=== PATIENT | female | born 1995 | race Caucasian/White ===

== ENCOUNTER 2021-04-26 12:43 | Emergency (ER) | payer BC, SELFPAY ==
[2021-04-26] VITALS (10 sets, daily range): BP systolic 98–119; BP diastolic 57–75; PULSE 57–73; RESP 13–22; TEMP 36.9; O2SAT 96–100; BMI 27.4
--- NOTE | 2021-04-26 12:54 | ED.ABDPAIN ---
HPI - Abdominal Pain General Chief Complaint: Abdominal Pain Stated Complaint: Thinks Appendicitis Time Seen by Provider: 04/26/21 12:49 Source: patient Mode of arrival: Ambulatory Limitations: no limitations History of Present Illness HPI narrative: 25-year-old female nonsmoker with noncontributory medical history presents with a chief complaint of right lower quadrant pain since this morning. She states her pain is worse with motion and improves at rest. She denies fever chills. She denies nausea, vomiting, diarrhea or constipation. She denies any dysuria, frequency or urgency. She denies any vaginal bleeding or discharge. She states her pain is worse when she moves and improves with rest. She denies any change in appetite. She states her last period was about 6 weeks ago and she is occasionally sexually active. She denies vaginal bleeding or discharge Related Data Previous Rx's Medication Instructions Recorded norethindrone acetate 1 mg-ethinyl 1 tab PO QDAY #21 tab 10/20/18 estradiol 20 mcg tablet (Junel) Allergies Allergy/AdvReac Type Severity Reaction Status Date / Time No Known Drug Allergies Allergy Verified 04/26/21 12:52 Review of Systems Review of Systems Narrative: GENERAL: Denies chills, fatigue, malaise, fever, sweats. HEENT: Denies sinus pain, ear pain, sore throat, difficulty swallowing, dizziness. RESPIRATORY: Denies dyspnea, cough, wheezing, hemoptysis, sputum. CARDIOVASCULAR: Denies chest pain, palpitations, orthopnea, edema, GASTROINTESTINAL: See HPI : Denies dysuria, frequency, incontinence, hematuria, urinary retention. MUSCULOSKELETAL: denies weakness, joint pain, or bony pain SKIN: Denies rash, skin lesions, or other NEUROLOGIC: Denies weakness, headache, numbness, change in speech, confusion, seizures, incoordination. PSYCHIATRIC: No concerning psychosocial issues. 12 point review of systems is negative except for those stated above Patient History Social History Smoking Status: Unknown if ever smoked Smoking Status: Unknown if ever smoked alcohol intake frequency: a few times a week Substance Use Type: does not use Exam Narrative Exam Narrative: GENERAL: 25 [] year old patient appears stated age. Well-developed patient, in mild distress. HEAD: Atraumatic. Normocephalic. EYES: Pupils equal round and reactive. Extraocular motions intact. No scleral icterus. No injection or drainage. ENT: Nose without bleeding, purulent drainage. Throat without erythema, tonsillar hypertrophy or exudate. Airway patent. NECK: Trachea midline. Non tender CARDIOVASCULAR: Regular rate and rhythm without murmurs, gallops, or rubs. RESPIRATORY: Clear to auscultation. Breath sounds equal bilaterally. No wheezes, rales, or rhonchi. GASTROINTESTINAL: Abdomen soft, tender in the right lower quadrant, nondistended. No rebound, guarding, obturator or psoas EXTREMITIES: No edema or joint tenderness. BACK: Nontender without deformity or crepitance. No flank tenderness. NEURO: AOx3. SKIN: No rash or erythema of visible areas Initial Vital Signs Initial Vital Signs: Vital Signs Temperature 98.4 F 04/26/21 12:48 Pulse Rate 65 04/26/21 12:48 Respiratory Rate 14 04/26/21 12:48 Blood Pressure 119/75 04/26/21 12:48 Pulse Oximetry 100 04/26/21 12:48 Course Orders Ordered: Discontinued Medications Sodium Chloride (Normal Saline 0.9%) 1,000 mls @ 1,000 mls/hr IV BOLUS ONE Stop: 04/26/21 13:51 Last Infusion: 04/26/21 15:05 Dose: 0 mls/hr Documented by: Admin: 04/26/21 13:12 Dose: 1,000 mls/hr Documented by: CHARBEL Vital Signs Vital signs: Vital Signs - 8 hr 04/26/21 12:48 04/26/21 12:50 04/26/21 13:14 Temperature 98.4 F Pulse Rate 65 59 L Respiratory Rate 14 22 Blood Pressure 119/75 119/75 Pulse Oximetry 100 98 04/26/21 13:30 04/26/21 13:55 04/26/21 14:00 Temperature Pulse Rate 57 L 60 57 L Respiratory Rate 17 13 19 Blood Pressure 108/69 108/65 Pulse Oximetry 100 96 100 04/26/21 14:15 04/26/21 14:30 Temperature Pulse Rate 73 58 L Respiratory Rate 20 18 Blood Pressure 114/69 103/57 L Pulse Oximetry 100 100 MDM - Abdominal Pain Lab Data Result diagrams: 04/26/21 13:00 04/26/21 13:00 Labs: Lab Results 04/26/21 04/26/21 04/26/21 Range/Units 13:00 13:00 13:00 WBC 7.5 (4.5-11.0) X10^3/uL RBC 4.18 (4.0-5.2) X10^6/uL Hgb 12.4 (12.0-16.0) g/dL Hct 37.3 (36-46) % MCV 89.3 (80-100) fL MCH 29.6 (26-34) PG MCHC 33.1 (30-36) % RDW 13.3 (11.6-14.8) % Plt Count 200 (150-400) X10^3/uL Neut % (Auto) 63.0 (50-75) % Lymph % (Auto) 28.2 (25-40) % [place] % (Auto) 6.9 (3-14) % Eos % (Auto) 1.4 L (2-4) % Baso % (Auto) 0.5 (0-2) % Neut # (Auto) 4800 (6855-8507) /uL Lymph # (Auto) 2100 (4266-3394) /uL [place] # (Auto) 500 (0-900) /uL Eos # (Auto) 100 (0-450) /uL Baso # (Auto) 0 (0-100) /uL Sodium 139 (137-145) mmol/L Potassium 3.8 (3.4-5.1) mmol/L Chloride 105 (98-107) mmol/L Carbon Dioxide 27 (22-32) mmol/L BUN 13 (7-17) mg/dL Creatinine 0.68 (0.52-1.04) mg/dL Estimated GFR > 60.0 (>60) mL/min BUN/Creatinine Ratio 19.1 (6-22) Glucose 100 (70-100) mg/dL Calcium 9.6 (8.4-10.2) mg/dL Total Bilirubin 0.4 (0.2-1.3) mg/dL AST 27 (14-36) IU/L ALT 20 (<35) IU/L Alkaline Phosphatase 47 (38-126) U/L Total Protein 7.0 (6.3-8.2) g/dL Albumin 4.2 (3.5-5.0) g/dL Globulin 2.8 (1.7-4.1) g/dL Albumin/Globulin Ratio 1.5 (1.0-2.8) Lipase 159 (23-300) U/L Serum , Qual Negative (Negative) Urine RBC (0-5/HPF) Urine WBC (0-5/HPF) Ur Squamous Epith Cells (0-5/HPF) Urine Bacteria (None) Ur Culture Indicated? SARS-CoV-2 (PCR) (Negative) 04/26/21 04/26/21 Range/Units 13:00 13:55 WBC (4.5-11.0) X10^3/uL RBC (4.0-5.2) X10^6/uL Hgb (12.0-16.0) g/dL Hct (36-46) % MCV (80-100) fL MCH (26-34) PG MCHC (30-36) % RDW (11.6-14.8) % Plt Count (150-400) X10^3/uL Neut % (Auto) (50-75) % Lymph % (Auto) (25-40) % [place] % (Auto) (3-14) % Eos % (Auto) (2-4) % Baso % (Auto) (0-2) % Neut # (Auto) (0485-4491) /uL Lymph # (Auto) (7279-3448) /uL [place] # (Auto) (0-900) /uL Eos # (Auto) (0-450) /uL Baso # (Auto) (0-100) /uL Sodium (137-145) mmol/L Potassium (3.4-5.1) mmol/L Chloride (98-107) mmol/L Carbon Dioxide (22-32) mmol/L BUN (7-17) mg/dL Creatinine (0.52-1.04) mg/dL Estimated GFR (>60) mL/min BUN/Creatinine Ratio (6-22) Glucose (70-100) mg/dL Calcium (8.4-10.2) mg/dL Total Bilirubin (0.2-1.3) mg/dL AST (14-36) IU/L ALT (<35) IU/L Alkaline Phosphatase (38-126) U/L Total Protein (6.3-8.2) g/dL Albumin (3.5-5.0) g/dL Globulin (1.7-4.1) g/dL Albumin/Globulin Ratio (1.0-2.8) Lipase (23-300) U/L Serum , Qual (Negative) Urine RBC None seen (0-5/HPF) Urine WBC None seen (0-5/HPF) Ur Squamous Epith Cells >30 /hpf H (0-5/HPF) Urine Bacteria None seen (None) Ur Culture Indicated? Cult not indicated SARS-CoV-2 (PCR) Negative (Negative) Point of care testing: Urine Dip Bedside Urine Glucose Negative Bedside Urine Bilirubin - Negative Bedside Urine Ketone - Negative Urine Specific [place] 1.030 Bedside Urine Occult Blood - Negative Bedside Urine pH 6 Bedside Urine Protein + 30 Bedside Urine Urobilinogen - Negative Bedside Urine Nitrite - Negative Bedside Urine Leukocytes - Negative Esterase Imaging Data CT scan - abdomen/pelvis: Radiologist's Impression: Ariela Gay E 25 F [address] [id number] Scan ReportSigned Patient: Ariela Gay EMR#: [id number]: 1995Acct:[id number]/Sex: 25 / FDate of Service: 04/26/21Loc: EDAccession Number: [id number] Procedure: CT abdomen pelvis w con Ordering Provider: Todd Hensley D.O. PROCEDURE: CT ABDOMEN PELVIS W CON INDICATIONS: abdominal pain TECHNIQUE: After the administration of oral and IV contrast, axial sections were acquired from the lung bases to the pubic symphysis. Coronal and sagittal reformats were performed. For radiation dose reduction, the following was used: automated exposure control, adjustment of mA and/or kV according to patient size. COMPARISON: None. FINDINGS: Lower thorax: The lung bases are clear. Heart size normal. No hiatal hernia. Liver: Normal in size and attenuation. No contour deformity present. Biliary system: No calcified cholelithiasis or pericholecystic inflammation. No intra or extrahepatic bile duct dilatation. Pancreas: Unremarkable without mass or inflammation evident. Spleen: Normal in size and density. Small 1 cm benign appearing cyst noted. Adrenals: Normal morphology and density. Reproductive system: Unremarkable as visualized. Urinary system: Normal renal size and attenuation. No renal calculi, hydronephrosis, or solid mass present. Urinary bladder unremarkable. Gastrointestinal system: The bowel appears unremarkable with no evidence of bowel obstruction or inflammation. The stomach appears unremarkable. Appendix: The appendix is largely gas filled and 5 mm in diameter. No evidence of acute appendicitis. Peritoneal spaces: No mesenteric or retroperitoneal adenopathy. No free air. Small amount of free fluid noted in the pelvis. Vasculature: The IVC, aorta and iliac vasculature are unremarkable. Musculoskeletal: Normal bone mineralization. No acute fractures. Abdominal wall intact without evidence of ventral or inguinal hernias. IMPRESSION: 1. Small amount of free fluid in the pelvis. Consider ultrasound correlation. 2. Normal appearing appendix. US - PUTTY REMOVER: Radiologist's Impression: Ariela Gay E 25 F [address] [id number] ReportSigned Patient: Ariela Gay EMR#: [id number]: 1995Acct:[id number]/Sex: 25 / FDate of Service: 04/26/21Loc: EDAccession Number: [id number] Procedure: US pelvic complete Ordering Provider: Todd Hensley D.O. PROCEDURE: US PELVIC COMPLETE INDICATIONS: RIGHT LOWER QUADRANT PAIN. NEGATIVE TEST. TECHNIQUE: Real-time scanning was performed of the pelvic organs, with image documentation. Additional endovaginal scanning was necessary due to incomplete visualization of the adnexal and endometrial structures by transabdominal scanning. COMPARISON: [facility], CT, CT ABDOMEN PELVIS W CON, 04/26/2021, 14:08. FINDINGS: Uterus: Uterus is normal in size at 8.0 x 4.5 x 3.0 cm. The endometrium measures 11.1 mm in combined thickness. Subcentimeter fibroids are noted. Ovaries: The right ovary measures 4.7 x 2.4 x 2.9 cm. The left ovary measures 2.6 x 2.0 x 1.6 cm. Both ovaries demonstrate multiple normal appearing follicles. The left ovary has a para ovarian simple follicle measuring 1.4 x 1.1 x 0.8 cm. Other: There is a small amount of simple fluid in the right adnexa, likely physiologic. IMPRESSION: 1. No acute ultrasound abnormality of the pelvis. 2. Fluid in the pelvis is likely physiologic. Dictated by: Al Ulloa M.D. on 04/26/2021 at 16:12 Approved by: Al Ulloa M.D. on 04/26/2021 at 16:19 MDM Narrative Medical decision making narrative: Multiple diagnoses considered including kidney stone versus appendicitis versus bowel obstruction versus ovarian torsion versus ectopic. Patient's labs and imaging are very reassuring. I discussed at length with the patient my strong recommendation to perform a pelvic exam and the potential consequences of an untreated pelvic infection such as tubo-ovarian abscess, problems with conceiving, etc.. She understands these risks and would prefer to wait for an appointment with her OB doctor. She has been given extensive return precautions and questions have been answered to her apparent satisfaction Discharge Plan Departure Patient Disposition: Home Clinical Impression: Right lower quadrant abdominal pain Instructions: Acute Abdominal Pain Activity Restrictions/Additional Instructions: *You have been diagnosed with [right lower quadrant pain. There is no current indication of appendicitis, kidney stone, ovarian problem.] *What to do: *Please continue to take your regular medications as directed. [ ] New medication prescriptions sent to your pharmacy: [ ] [ ] New medication written as a paper prescription [x ] No new medications given *Please follow up with your primary care provider in 2-3 days, call for an appointment. Let them know you were seen in the Emergency Department and that we ask that you be seen in follow up. We will electronically transmit a record of today's note if your PCP is in our system *If you do not have a primary care provider please contact the [facility] Resource line at [phone]. They will ask some questions about your medical history and help get you set up with a doctor in the community. *Return to Emergency Department if you should have any new, worsening or concerning symptoms, such as [fever greater than 101 F, shaking chills, worsening pain, persistent vomiting or other bothersome symptoms] Prescriptions: No Action norethindrone ac-eth estradiol [10/10 (21)] 1-20 mg-mcg tablet 1 tab PO QDAY Qty: 21 RF: 0 Referrals: [facility] [Outside] Joy Zafar ARNP [Primary Care Provider] -
[2021-04-26] MEDS: SODIUM CHLORIDE 0.9% 1,000 ML 1000 ML IV (13:12)
[2021-04-26 13:17] LABS: Add Manual Diff / Slide Review NO; Basophils Absolute Auto 0 /uL (0-100); Basophils Percent Auto 0.5 % (0-2); Eosinophils Absolute Auto 100 /uL (0-450); Eosinophils Percent Auto 1.4 % (2-4); Hematocrit 37.3 % (36-46); Hemoglobin 12.4 g/dL (12.0-16.0); Lymphocytes Absolute Auto 2100 /uL (1100-4500); Lymphocytes Percent Auto 28.2 % (25-40); Mean Corpuscular HGB Conc 33.1 % (30-36); Mean Corpuscular Hemoglobin 29.6 PG (26-34); Mean Corpuscular Volume 89.3 fL (80-100); Monocytes Absolute Auto 500 /uL (0-900); Monocytes Percent Auto 6.9 % (3-14); Neutrophils Absolute Auto 4800 /uL (1500-7000); Platelet Count 200 X10^3/uL (150-400); Red Blood Cell Count 4.18 X10^6/uL (4.0-5.2); Red Cell Distribution Width 13.3 % (11.6-14.8); White Blood Cell Count 7.5 X10^3/uL (4.5-11.0)
[2021-04-26 13:40] LABS: Alanine Aminotransferase 20 IU/L (<35); Albumin 4.2 g/dL (3.5-5.0); Albumin Globulin Ratio 1.5 (1.0-2.8); Alkaline Phosphatase 47 U/L (38-126); Aspartate Aminotransferase 27 IU/L (14-36); BUN Creatinine Ratio 19.1 (6-22); Bilirubin Total 0.4 mg/dL (0.2-1.3); Blood Urea Nitrogen 13 mg/dL (7-17); Calcium 9.6 mg/dL (8.4-10.2); Carbon Dioxide 27 mmol/L (22-32); Chloride 105 mmol/L (98-107); Estimated Glomerular Filt Rate > 60.0 mL/min (>60); Globulin 2.8 g/dL (1.7-4.1); Glucose 100 mg/dL (70-100); HEMOLYSIS < 15 (0-50); Lipase 159 U/L (23-300); Potassium 3.8 mmol/L (3.4-5.1); Sodium 139 mmol/L (137-145)
[2021-04-26 13:42] LABS: Pregnancy Test Serum,Qual Negative (Negative)
--- NOTE | 2021-04-26 14:07 | DI.CT.S_ITS ---
PROCEDURE: CT ABDOMEN PELVIS W CON INDICATIONS: abdominal pain TECHNIQUE: After the administration of oral and IV contrast, axial sections were acquired from the lung bases to the pubic symphysis. Coronal and sagittal reformats were performed. For radiation dose reduction, the following was used: automated exposure control, adjustment of mA and/or kV according to patient size. COMPARISON: None. FINDINGS: Lower thorax: The lung bases are clear. Heart size normal. No hiatal hernia. Liver: Normal in size and attenuation. No contour deformity present. Biliary system: No calcified cholelithiasis or pericholecystic inflammation. No intra or extrahepatic bile duct dilatation. Pancreas: Unremarkable without mass or inflammation evident. Spleen: Normal in size and density. Small 1 cm benign appearing cyst noted. Adrenals: Normal morphology and density. Reproductive system: Unremarkable as visualized. Urinary system: Normal renal size and attenuation. No renal calculi, hydronephrosis, or solid mass present. Urinary bladder unremarkable. Gastrointestinal system: The bowel appears unremarkable with no evidence of bowel obstruction or inflammation. The stomach appears unremarkable. Appendix: The appendix is largely gas filled and 5 mm in diameter. No evidence of acute appendicitis. Peritoneal spaces: No mesenteric or retroperitoneal adenopathy. No free air. Small amount of free fluid noted in the pelvis. Vasculature: The IVC, aorta and iliac vasculature are unremarkable. Musculoskeletal: Normal bone mineralization. No acute fractures. Abdominal wall intact without evidence of ventral or inguinal hernias. IMPRESSION: 1. Small amount of free fluid in the pelvis. Consider ultrasound correlation. 2. Normal appearing appendix. Approved by: Hardy Shukla M.D. on 04/26/2021 at 13:38
[2021-04-26 14:09] LABS: COVID19 - ADMIT (NP swab/PCR) Negative (Negative)
[2021-04-26 14:21] LABS: RBC Urine None Seen (0-5/HPF)
[2021-04-26 14:22] LABS: Bacteria Urine None Seen; WBC Urine None Seen (0-5/HPF)
[2021-04-26 14:32] LABS: Culture Indicated Urine Cult Not Indicated; Squamous Epithelial Cell Urine >30 /HPF (0-5/HPF)
--- NOTE | 2021-04-26 14:43 | DI.US.S_ITS ---
PROCEDURE: US PELVIC COMPLETE INDICATIONS: RIGHT LOWER QUADRANT PAIN. NEGATIVE TEST. TECHNIQUE: Real-time scanning was performed of the pelvic organs, with image documentation. Additional endovaginal scanning was necessary due to incomplete visualization of the adnexal and endometrial structures by transabdominal scanning. COMPARISON: [facility], CT, CT ABDOMEN PELVIS W CON, 04/26/2021, 14:08. FINDINGS: Uterus: Uterus is normal in size at 8.0 x 4.5 x 3.0 cm. The endometrium measures 11.1 mm in combined thickness. Subcentimeter fibroids are noted. Ovaries: The right ovary measures 4.7 x 2.4 x 2.9 cm. The left ovary measures 2.6 x 2.0 x 1.6 cm. Both ovaries demonstrate multiple normal appearing follicles. The left ovary has a para ovarian simple follicle measuring 1.4 x 1.1 x 0.8 cm. Other: There is a small amount of simple fluid in the right adnexa, likely physiologic. IMPRESSION: 1. No acute ultrasound abnormality of the pelvis. 2. Fluid in the pelvis is likely physiologic. Dictated by: Al Ulloa M.D. on 04/26/2021 at 16:12 Approved by: Al Ulloa M.D. on 04/26/2021 at 16:19
== END 2021-04-26 16:05 | disposition home or self-care (01) ==
PROVIDERS: Emergency Provider Emergency Medicine; PCP Internal Medicine
DX: R10.31 Right lower quadrant pain (principal); Z20.822 Contact with and (suspected) exposure to COVID-19
CPT/HCPCS: 36415; 74177; 76830; 76856; 80053; 81003; 81015; 83690; 84703; 85025; 87635; 96360; 96361; 99284; C9803; Q9967